=== PATIENT | female | born 1930 | race Caucasian/White ===

== ENCOUNTER → 2020-04-23 | Outpatient (CLI) | payer MEDICARE, OTHER | LOC: HEART 5 13:37 | DX: R00.1 Bradycardia, unspecified (principal); I49.8 Other specified cardiac arrhythmias ==

== ENCOUNTER → 2020-08-08 | Outpatient (CLI) | payer MEDICARE, OTHER | LOC: HEART 5 10:00 | DX: I10 Essential (primary) hypertension (principal); I49.3 Ventricular premature depolarization; R42 Dizziness and giddiness; I08.3 Combined rheumatic disorders of mitral, aortic and tricuspid valves; I27.20 Pulmonary hypertension, unspecified | CPT/HCPCS: 93306 ==